=== PATIENT | male | born 1970 | race Caucasian/White ===

== ENCOUNTER 2017-02-20 10:03 | Day surgery (SDC) | payer MEDICAID ==
[~2017-02-20] VITALS: Ht 182.9 cm; Wt 142.8 kg
[2017-02-20 10:44] VITALS: BP 142/95
[2017-02-20] MEDS ORDERED: LACTATED RINGERS 1,000 ML IV SCH (10:57)
[2017-02-20] MEDS ORDERED: EMPA25TA PO (11:02)
[2017-02-20] MEDS ORDERED: IBUP-1223 PO (11:02)
[2017-02-20 11:27] LABS: BLOOD UREA NITROGEN 8 mg/dL (7-18)
[2017-02-20 11:31] LABS: ASPARTATE AMINO TRANSFERASE 127 U/L (15-37)
[2017-02-20] MEDS ORDERED: PROPOFOL 10 MG/ML, 20ML ONE (11:35)
[2017-02-20] MEDS ORDERED: ROCURONIUM 10 MG/ML ONE (11:35)
[2017-02-20] MEDS ORDERED: DEXAMETHASONE 4 MG/ML, 1ML ONE (11:35)
[2017-02-20] MEDS ORDERED: ONDANSETRON 2MG/ML, 2ML ONE (11:35)
[2017-02-20] MEDS ORDERED: SUCCINYLCHOLINE 20 MG/ML, 10ML ONE (11:35)
[2017-02-20] MEDS ORDERED: KETOROLAC 30 MG/1 ML ONE ×2 (11:35→14:20)
[2017-02-20] MEDS ORDERED: FENTANYL PF 100 MCG/2ML ONE ×3 (11:39→14:20)
[2017-02-20] MEDS ORDERED: MIDAZOLAM 1 MG/ML, 2ML ONE (11:39)
[2017-02-20] MEDS ORDERED: hydrALAzine 20 MG/ML, 1ML IV PRN (12:30)
[2017-02-20] MEDS ORDERED: FENTANYL PF 100 MCG/2ML IV PRN (12:30)
[2017-02-20] MEDS ORDERED: KETOROLAC 30 MG/1 ML IV PRN ×2 (12:30→14:00)
[2017-02-20] MEDS ORDERED: ALBUTEROL SULFATE 2.5 MG/3 ML NPPB PRN (12:30)
[2017-02-20] MEDS ORDERED: MIDAZOLAM 1 MG/ML, 2ML IV PRN (12:30)
[2017-02-20] MEDS ORDERED: OXYcodone 5 MG/5 ML ORAL.SOL UDC PO PRN (12:30)
[2017-02-20] MEDS ORDERED: HYDROcodone/APAP 7.5-325MG/15ML UDC PO PRN ×2 (12:30→14:00)
[2017-02-20] MEDS ORDERED: ACETAMINOPHEN 325 MG TABLET PO PRN (12:30)
[2017-02-20] MEDS ORDERED: METOPROLOL 1 MG/ML, 5ML IV PRN (12:30)
[2017-02-20] MEDS ORDERED: ONDANSETRON 2MG/ML, 2ML IVPush PRN (12:30)
[2017-02-20] MEDS ORDERED: LABETALOL 5MG/ML, 20ML IV PRN (12:30)
[2017-02-20] MEDS ORDERED: PROMETHAZINE 25 MG/ML, 1ML IV PRN (12:30)
[2017-02-20] MEDS ORDERED: EPHEDRINE 50 MG/ML, 1ML IVPush PRN (12:30)
[2017-02-20] MEDS ORDERED: METOCLOPRAMIDE 5 MG/ML, 2ML IV PRN (12:30)
[2017-02-20] MEDS ORDERED: HYDROmorphone 1 MG/ML, 1ML IV PRN (12:30)
[2017-02-20] MEDS ORDERED: MEPERIDINE/PF 25MG/0.5ML IVPush PRN (12:30)
[2017-02-20] MEDS ORDERED: OMNIPAQUE 300 MG/ML, 10ML VIAL ONE (13:15)
[2017-02-20] MEDS ORDERED: OPIUM/BELLADONNA SUPP.RECT 16.2-60 MG ONE (13:41)
[2017-02-20] MEDS ORDERED: MEPERIDINE/PF 25MG/0.5ML ONE (14:21)
[2017-02-20] MEDS ORDERED: OXYcodone 5 MG/5 ML ORAL.SOL UDC ONE (14:21)
[2017-02-20] MEDS ORDERED: PHENAZOPYRIDINE 200 MG TABLET ONE (15:54)
[2017-02-20] MEDS ORDERED: PHENAZOPYRIDINE 200 MG TABLET PO PRN (16:00)
[2017-02-20] MEDS ORDERED: OXYcodone/APAP 7.5/325MG TABLET PO PRN (16:00)
[2017-02-20] MEDS ORDERED: OXYcodone/APAP 7.5/325MG TABLET ONE (16:04)
[2017-02-20] MEDS ORDERED: HYDROmorphone 1 MG/ML, 1ML IV ONE (16:30)
[2017-02-20] MEDS ORDERED: HYDROmorphone 2 MG/ML, 1ML ONE (16:35)
== END 2017-02-20 18:35 ==
LOC: OUT 10:03
PROVIDERS: ATTEND Urology
DX: N20.0 Calculus of kidney (principal); E11.9 Type 2 diabetes mellitus without complications; E11.40 Type 2 diabetes mellitus with diabetic neuropathy, unspecified; E66.01 Morbid (severe) obesity due to excess calories; Z68.41 Body mass index [BMI] 40.0-44.9, adult; Z87.891 Personal history of nicotine dependence
CPT/HCPCS: 36415; 52356; 80053; 81001; 82360; 82962; 87086; 88300; 93005; C1758; C1769; C2617; J0330; J1100; J1170; J1885; J2175; J2250; J2405; J2704; J3010; J7120; Q9967